=== PATIENT | female | born 1955 | race Caucasian/White ===

== ENCOUNTER 2018-11-07 08:14 | Day surgery (SDC) | payer MEDICARE, OTHER ==
[2018-11-07] MEDS ORDERED: LACTATED RINGERS 1,000 ML IV ONE ×2 (08:21→10:02)
[2018-11-07] MEDS ORDERED: fentaNYL 250 MCG/5 ML VIAL IVP ONE (09:36)
[2018-11-07] MEDS ORDERED: MIDAZOLAM 2 MG/2 ML VIAL IVP ONE (09:36)
[2018-11-07 10:34] VITALS: BP 103/68
== END 2018-11-07 08:15 | disposition home or self-care (01) ==
LOC: SDS 08:14
PROVIDERS: ATTEND Internal Medicine Gastroenterology
PROC: 0DJD8ZZ Inspection of Lower Intestinal Tract, Via Natural or Artificial Opening Endoscopic (ICD-10-PCS; principal; 2018-11-07 09:15)
DX: Z12.11 Encounter for screening for malignant neoplasm of colon (principal); K57.30 Diverticulosis of large intestine without perforation or abscess without bleeding; J30.9 Allergic rhinitis, unspecified
CPT/HCPCS: G0121; J3010; J7120

== ENCOUNTER 2020-03-17 13:18 | Outpatient (CLI) | payer MEDICARE, OTHER ==
--- NOTE | 2020-03-18 07:16 | DEXA Report ---
PROCEDURE: Dexa Spine and/or Hip INDICATIONS: POST MENOPAUSAL TECHNIQUE: Dual energy x-ray absorptiometry (DXA) was performed on a [employer] System. Regions measur ed are the AP Spine, femoral neck, and if needed forearm. COMPARISON: None. FINDINGS: Lumbar Spine: Bone Mineral Density 0.993 g/cm/cm,T score -1.6, osteopenia Left Hip: Bone Mineral Density 0.718 g/cm/cm,T score -2.3, osteopenia Left Femoral Neck: Bone Mineral Density 0.727 g/cm/cm, T score -2.2, osteopenia (T score greater or equal to -1.0: NORMAL) (T score from -1.1 to -2.4: OSTEOPENIA) (T score less than or equal to -2.5 to: OSTEOPOROSIS) Impression: Osteopenia. Patients with diagnosis of osteoporosis or osteopenia should have regular bone mineral density assess ment. For those eligible for Medicare, routine testing is allowed once every 2 years. Testing frequ ency can be increased for patients who have rapidly progressing disease or for those who are receivin g medical therapy to restore bone mass. Reviewed by: Clara Sharma MD, PhD on 03/17/2020 4:49 PM PDT Approved by: Clara Sharma MD, PhD on 03/17/2020 4:49 PM PDT Station ID: [id number]
== END 2020-03-17 13:19 | disposition home or self-care (01) ==
LOC: DI 13:18
PROVIDERS: ATTEND Family Medicine
DX: M85.89 Other specified disorders of bone density and structure, multiple sites (principal)
CPT/HCPCS: 77080

== ENCOUNTER 2020-03-17 13:20 | Outpatient (CLI) | payer MEDICARE, OTHER ==
--- NOTE | 2020-03-18 06:36 | Mammography Report ---
BILATERAL DIGITAL SCREENING MAMMOGRAM 3D/2D: 03/17/2020 CLINICAL: Routine screening. Comparison is made to exams dated: 06/20/2016 mammogram and 08/13/2018 mammogram - [facility]. The tissue of both breasts is heterogeneously dense. This may lower the sensitivity of ma mmography. No significant masses, calcifications, or other findings are seen in either breast. There has been no significant interval change. IMPRESSION: NEGATIVE There is no mammographic evidence of malignancy. A 1 year screening mammogram is recommended. This exam was interpreted at Station ID: [id number]. NOTE: For mammograms, a report in lay terms will be sent to the patient. Approximately 15% of breast malignancies will not be visualized mammographically. In the management of a palpable breast mass, a negative mammogram must not discourage biopsy of a clinically suspicious lesion. Electronically Signed By: Rayne baker/sunday:03/17/2020 15:23:53 ACR BI-RADS Category 1: Negative 3341F PARENCHYMAL PATTERN: (D) - The breast(s) demonstrate(s) heterogeneously dense fibroglandular parjosey ma. BI-RADS CATEGORY: (1) - 1 RECOMMENDATION: (ANNUAL) - Recommend routine annual screening mammography. [id number] 1 year screening LATERALITY: (B)
== END 2020-03-17 13:21 | disposition home or self-care (01) ==
LOC: DI 13:20
PROVIDERS: ATTEND Family Medicine
DX: Z12.31 Encounter for screening mammogram for malignant neoplasm of breast (principal)
CPT/HCPCS: 77063; 77067

== ENCOUNTER 2023-04-20 08:34 | Outpatient (CLI) | payer MEDICARE | END 2023-04-20 08:35 | disposition critical access hospital (66) | LOC: EMS 08:34 | DX: R55 Syncope and collapse (principal) | CPT/HCPCS: A0425; A0429 ==

== ENCOUNTER 2023-04-20 09:08 | Emergency (ER) | payer MEDICARE, OTHER ==
--- NOTE | 2023-04-20 09:41 | ED Physician Documentation ---
PD HPI SYNCOPE - Stated complaint Stated Complaint: NEAR SYNCOPE - Chief complaint Chief Complaint: Neuro - History obtained from History obtained from: Patient - History of Present Illness Witnessed: Witnessed Timing - onset: Today Duration: Minutes Preceding symptoms: Nausea / vomiting (had onset of some nausea and then felt lightheaded as she was standing taling on phone. Near syncope and had to sit down. Improved after 1-2 minutes. Started to stand up again and similar near syncope. Improved after a minute or so sitting back down. No chest pain, abd pain.), Light headed. No: Headache, Chest pain Associated symptoms: No: Headache, Chest pain, Abdominal pain Contributing factors: Just stood up. No: Recent med change, Decreased PO intake Similar symptoms before: Has not had sx before Review of Systems Constitutional: denies: Fever, Chills Nose: denies: Rhinorrhea / runny nose, Congestion Throat: denies: Sore throat Cardiac: denies: Chest pain / pressure, Palpitations Respiratory: denies: Dyspnea, Cough GI: reports: Nausea. denies: Vomiting, Diarrhea, Bloody / black stool PD PAST MEDICAL HISTORY - Past Medical History Past Medical History: Yes Cardiovascular: Hypertension, High cholesterol Respiratory: None Endocrine/Autoimmune: None GI: None : Kidney stones HEENT: None, Other Psych: None Musculoskeletal: Osteoarthritis Derm: None - Past Surgical History General: Appendectomy, Colonoscopy Ortho: Shoulder arthroplasty HEENT: Tonsil/Adenoidectomy - Present Medications Home Medications: Ambulatory Orders Medication Instructions Recorded Confirmed Rosuvastatin Calcium 20 mg PO DAILY 11/06/18 04/20/23 - Allergies Allergies/Adverse Reactions: Allergies Allergy/AdvReac Type Severity Reaction Status Date / Time amoxicillin [From Augmentin] Allergy Hives Verified 04/20/23 09:31 clavulanic acid Allergy Hives Verified 04/20/23 09:31 [From Augmentin] erythromycin base Allergy Hives Verified 04/20/23 09:31 Sulfa (Sulfonamide Allergy Anaphylaxis Verified 04/20/23 09:31 Antibiotics) - Social History Does the pt smoke?: No Smoking Status: Never smoker Does the pt drink ETOH?: Yes Does the pt have substance abuse?: No PD ED PE NORMAL - Vitals Vital signs reviewed: Yes - General General: Alert and oriented X 3, No acute distress, Well developed/nourished - HEENT HEENT: PERRL, EOMI - Neck Neck: Supple, no meningeal sign, No bony TTP, No adenopathy - Cardiac Cardiac: RRR, No murmur - Respiratory Respiratory: Clear bilaterally - Abdomen Abdomen: Soft, Non tender - Back Back: No CVA TTP - Derm Derm: Normal color, Warm and dry - Neuro Neuro: Alert and oriented X 3, bacteriologist dairy 2-12 intact, No motor deficit, No sensory deficit, Normal speech Eye Opening: Spontaneous Motor: Obeys Commands Verbal: Oriented GCS Score: 15 Results - Vitals Vitals: Oxygen O2 Source Room air - EKG (time done) 09:37 EKG releavant findings:: EKG personally interpreted by author of this note. Relevant findings are: Rate: Rate (enter#) (73) Rhythm: NSR [place]: Normal Intervals: Normal VT QRS: Normal Ischemia: Normal ST segments, Non specific changes. No: ST elevation c/w ischemia, ST depression Compare to prior EKG: Old EKG unavailable - Labs Labs: Laboratory Tests 04/20/23 04/20/23 04/20/23 09:37 09:37 09:45 WBC 5.6 RBC 4.50 Hgb 13.0 Hct 39.8 MCV 88.4 MCH 28.9 MCHC 32.7 RDW 14.2 Plt Count 225 MPV 10.3 Neut # (Auto) 3.4 Lymph # (Auto) 1.6 [place] # (Auto) 0.4 Eos # (Auto) 0.1 Baso # (Auto) 0.0 Absolute Nucleated RBC 0.00 Nucleated RBC % 0.0 Sodium 142 Potassium 3.8 Chloride 109 Carbon Dioxide 26 Anion Gap 7.0 BUN 11 Creatinine 0.7 Estimated GFR (MDRD) 83 L Glucose 95 POC Whole Bld Glucose 99 Calcium 9.6 Magnesium Total Bilirubin 0.5 AST 15 ALT 15 Alkaline Phosphatase 82 Troponin I High Sens < 2.3 L Total Protein 6.4 Albumin 4.3 Globulin 2.1 Albumin/Globulin Ratio 2.0 Lipase 45 04/20/23 04/20/23 10:34 10:34 WBC RBC Hgb Hct MCV MCH MCHC RDW Plt Count MPV Neut # (Auto) Lymph # (Auto) [place] # (Auto) Eos # (Auto) Baso # (Auto) Absolute Nucleated RBC Nucleated RBC % Sodium Potassium Chloride Carbon Dioxide Anion Gap BUN Creatinine Estimated GFR (MDRD) Glucose POC Whole Bld Glucose Calcium Magnesium 2.0 Total Bilirubin AST ALT Alkaline Phosphatase Troponin I High Sens < 2.3 L Total Protein Albumin Globulin Albumin/Globulin Ratio Lipase PD Medical Decision Making - ED course Complexity details: reviewed results (ECG without ischemic changes. Troponin normal and repeat also. Not anemic. Lytes are normal range. ), considered differential (near syncope without pains. Will eval cardiovascular, cbc, lytes, blood sugar. No recent changes in meds, no recent illness, nor volume loss. ), d/w patient Departure - Departure Disposition: Home, Self Care Clinical Impression: Near syncope, Nausea Condition: Stable Record reviewed to determine appropriate education?: Yes Instructions: ED Near Syncope Unkn Follow-Up: VIVIAN TATE MD [Primary Care Provider] - Comments: Your basic blood tests and EKG are normal. No obvious cause for your near fainting episode. It may have triggered from some of the nausea feeling causing a inappropriate drop in blood pressure. Unclear at this time. Follow-up with your primary care if you have recurring episodes similar. Return if any worsening symptoms in general. Your Electrolytes and blood count were normal. No signs of heart injury/heart attack based on your EKG and blood test. Normal activity is okay. Update your primary care about the episode and see if they want a follow-up visit. Forms: PCP List Discharge Date/Time: 04/20/23 11:38
[2023-04-20 09:47] LABS: BASOPHILS % (AUTO) 0.7 %; EOSINOPHILS # (AUTO) 0.1 10^3/uL (0.0-0.7); HCT - HEMATOCRIT 39.8 % (37.0-47.0); LYMPHOCYTES # (AUTO) 1.6 10^3/uL (1.5-3.5); LYMPHOCYTES % (AUTO) 28.1 %; MEAN CORPUSCULAR HEMOGLOBIN 28.9 pg (27.0-31.0); MEAN CORPUSCULAR HGB CONC 32.7 g/dL (32.0-36.0); MEAN CORPUSCULAR VOLUME 88.4 fL (81.0-99.0); MEAN PLATELET VOLUME 10.3 fL (7.9-10.8); MONOCYTES # (AUTO) 0.4 10^3/uL (0.0-1.0); MONOCYTES % (AUTO) 7.7 %; NEUTROPHILS # (AUTO) 3.4 10^3/uL (1.5-6.6); NEUTROPHILS % (AUTO) 61.3 %; PLT - PLATELET COUNT 225 10^3/uL (130-450); RED CELL DISTRIBUTION WIDTH 14.2 % (12.0-15.0); WHITE BLOOD COUNT 5.6 x10^3/uL (4.8-10.8)
[2023-04-20 10:02] LABS: ALBUMIN 4.3 g/dL (3.2-5.5); ALKALINE PHOSPHATASE 82 IU/L (42-121); ALT ALANINE AMINOTRANSFERASE 15 IU/L (10-60); AST ASPARTATE AMINOTRANSFERASE 15 IU/L (10-42); BILIRUBIN,TOTAL 0.5 mg/dL (0.2-1.0); BUN - BLOOD UREA NITROGEN 11 mg/dL (6-20); CALCIUM 9.6 mg/dL (8.5-10.3); CARBON DIOXIDE - CO2 26 mmol/L (21-32); CHLORIDE 109 mmol/L (101-111); CREATININE 0.7 mg/dL (0.6-1.3); GFR - MDRD 83 (>89); GLUCOSE 95 mg/dL (74-104); LIPASE 45 U/L (11-82); POTASSIUM 3.8 mmol/L (3.5-4.5); SODIUM 142 mmol/L (135-145); TOTAL PROTEIN 6.4 g/dL (6.4-8.9)
[2023-04-20 10:05] LABS: TROPONIN I HIGH SENSITIVITY < 2.3 ng/L (2.3-14.8)
[2023-04-20 11:43] VITALS: BP 129/80; O2SAT 96
== END 2023-04-20 11:38 | disposition home or self-care (01) ==
LOC: EDUNIT# → ED 09:08
DX: R55 Syncope and collapse (principal); R11.2 Nausea with vomiting, unspecified
CPT/HCPCS: 36415; 80053; 83690; 83735; 84484; 85025; 93005; 99283; 99284